=== PATIENT | female | born 1995 | race Caucasian/White ===

== ENCOUNTER → 2018-03-26 19:00 | Observation (INO) ==
--- NOTE | 2018-03-26 17:20 | OB/GYN Progress Note ---
Date of Encounter: 03/26/18 Time of Encounter: 17:17 - Assessment and Plan (1) 24 weeks gestation of Current Visit: Yes Status: Acute Patient admitted for observation UA pending (2) Vaginal discharge Current Visit: Yes Status: Acute Negative: FERN, Nitrazine, Pooling Vaginosis panel pending Subjective - Subjective Principal diagnosis: vaginal discharge Interval history: Patient is a 22 y/o at 24 weeks presents to labor and delivery with complaints of vaginal pressure and leaking of fluid. Patient denies any VB or contractions. Patient denies any urinary symptoms. Patient's primary OB provider is David Magana CNM. Patient reports her first her water broke early she received medication to stop labor but did not delivery until 2 days past her due date. Patient reports discharge but denies any odor, color to it, denies vaginal itching or burning. Antepartum ROS: loss of fluid, movement normal, no vaginal bleeding, no contractions Objective - Vital Signs Vital Signs: Intake and Output 03/26/18 03/26/18 03/26/18 07:59 15:59 23:59 Other: Weight 67.222 kg Patient Weight 03/26/18 23:59 Weight 67.222 kg - Exam FHR comments: appropriate for gestational age Auscultation: bilateral: normal Abdomen: Present: normal appearance, soft, gravid Uterus: Present: normal Cervical dilation: closed Cervix effacement: thick station: ballotable Comments: speculum exam: Negative pooling, negative nitrazine, negative Fern. Vaginosis panel collected and sent to lab.
[2018-03-26 17:23] LABS: Bilirubin,Urine Negative (Negative); Blood,Urine Negative (Negative); Clarity,Urine Cloudy (Clear); Color,Urine Yellow (Yellow); Glucose,Urine (UA) Normal (Normal); Ketones,Urine Negative (Negative); Leukocyte Esterase,Urine Small (Negative); Nitrite,Urine Negative (Negative); PH,Urine 6.5 pH Units (5.0-8.0); Protein,Urine Negative (Neg-Trace); Specific Gravity,Urine 1.011 (1.010-1.025); Urobilinogen,Urine Normal (Normal)
[2018-03-26 17:26] LABS: Bacteria,Urine Few per hpf (None-Few); Hyaline Casts,Urine None Seen per lpf (None-Few); RBC,Urine 0-3 per hpf (0-3); Squamous Epithelial Cell,Urine Many per lpf (None-Few)
[2018-03-26 17:42] LABS: Amphetamine Screen,Urine Negative ng/mL (Cutoff=1000); Barbiturate Screen,Urine Negative ng/mL (Cutoff=200); Benzodiazepines Screen,Urine Negative ng/mL (Cutoff=200); Cannabinoid Screen,Urine Negative ng/mL (Cutoff = 50); Cocaine Screen,Urine Negative ng/mL (Cutoff= 300); Opiate Screen,Urine Negative ng/mL (Cutoff=300); Phencyclidine Screen,Urine Negative ng/mL (Cutoff=25)
[2018-03-26 18:34] LABS: Candida DNA Not Detected (Not Detect); Gardnerella DNA Not Detected (Not Detect); Trichomonas DNA Not Detected (Not Detect)
== END | disposition home or self-care (01) ==
LOC: 1NENULAB
PROVIDERS: ADMIT Obstetrics & Gynecology; ATTEND Obstetrics & Gynecology